=== PATIENT | male | born 1985 | race Caucasian/White ===

== ENCOUNTER 2017-12-10 13:28 | Observation (INO) ==
[2017-12-11 12:17] VITALS: BP 121/53
== END 2017-12-11 14:40 | disposition home or self-care (01) ==
LOC: EDBD → EDUNIT# → N.2E 13:28 → N.ED 13:28 → SUATTDRO 16:16 → N.2E 17:00
PROVIDERS: ADMIT Internal Medicine; ATTEND Hospitalist

== ENCOUNTER 2018-03-17 13:58 | Observation (INO) ==
[2018-03-17] MEDS ORDERED: NALOXONE 0.4 MG/ML VIAL ONE (14:49)
[2018-03-17] MEDS ORDERED: NALOXONE 0.4 MG/ML VIAL IV STA ×2 (14:51→14:56)
[2018-03-17] MEDS ORDERED: SODIUM CHLORIDE 0.9% 1,000 ML IV STA (14:52)
[2018-03-17 15:54] LABS: Basophils % 0.1 % (0.0-0.8); Hematocrit 50.1 VOL% (42.0-52.0); Immature Granulocytes % 0.3 %; Immature Granulocytes Absolute 0.05 #; Lymphocytes # 1.5 10*3/uL (1.4-4.0); Lymphocytes % 9.1 % (21.2-54.2); Mean Corpuscular HGB Conc 33.9 GM/DL (32-36); Mean Corpuscular Hemoglobin 30 PG (27-34); Mean Corpuscular Volume 88.8 FL (87-102); Mean Platelet Volume 9.2 FL (9.6-12.0); Monocytes # 0.8 10*3/uL (0.11-0.8); Monocytes % 4.6 % (1.7-12.7); Neutrophils # 14.3 10*3/uL (1.4-7.4); Neutrophils % 85.9 % (38.7-73.9); Platelet Count 511 T/CUMM (130-400); Red Blood Count 5.64 MC/CUMM (3.8-5.5); White Blood Count 16.7 T/CUMM (4-12)
[2018-03-17 16:14] LABS: Albumin 3.9 G/DL (3.4-5.0); Bilirubin,Total 1.2 MG/DL (0.2-1.0); Osmolality,Calculated 278.4 MOS/KG (273-304); Potassium 3.9 MMOL/L (3.5-5.1); Total Protein 8.3 G/DL (6.4-8.3)
[2018-03-17 16:41] LABS: Barbiturates Screen,Urine Negative (Negative); Benzodiazepines Screen,Urine Negative (Negative); Cannabinoid Screen,Urine Negative (Negative); Opiate Screen,Urine Positive (Negative); Phencyclidine Screen,Urine Negative (Negative)
[2018-03-17] MEDS ORDERED: ONDANSETRON 4 MG/2 ML VIAL IV PRN (17:16)
[2018-03-17] MEDS ORDERED: SODIUM CHLORIDE 0.9% 1,000 ML IV ONE ×2 (17:18→22:13)
[2018-03-17] MEDS: SODIUM CHLORIDE 0.9% 1,000 ML IV SCH (18:13)
[2018-03-17] MEDS ORDERED: INFLUENZA VIRUS VACCINE 0.5 ML SYRINGE IM ONE (19:59)
[2018-03-17] MEDS ORDERED: ENOXAPARIN 40 MG/0.4 ML SYRINGE SUBCUT SCH (21:00)
[2018-03-17 22:47] LABS: Apearance,Urine CLEAR (Clear); Bilirubin,Urine Negative (Negative); Blood, Urine Negative (Negative); Glucose,Urine (UA) Negative (Negative); Ketones,Urine 80 mg/dL (Negative); Mucus,Urine Many /LPF (Occasional); Nitrite,Urine Negative (Negative); Protein,Urine 30 MG/DL; RBC,Urine 3 /HPF (0-4); Squamous Epithelial Cell,Urine Occasional /HPF (0-10); Urine Color Yellow (Yellow); Urine Specific Gravity 1.029 (1.001-1.035); WBC,Urine 2 /HPF (0-6)
[2018-03-18] MEDS: SODIUM CHLORIDE 0.9% 1,000 ML IV SCH ×2 (04:13→10:10)
[2018-03-18 05:40] LABS: Basophils % 0.2 % (0.0-0.8); Eosinophils % 0.1 % (0.00-10.9); Hematocrit 42.2 VOL% (42.0-52.0); Hemoglobin 14.1 GM/DL (14.0-18.0); Immature Granulocytes % 0.6 %; Immature Granulocytes Absolute 0.07 #; Lymphocytes # 1.2 10*3/uL (1.4-4.0); Mean Corpuscular HGB Conc 33.4 GM/DL (32-36); Mean Corpuscular Hemoglobin 30 PG (27-34); Mean Corpuscular Volume 90.2 FL (87-102); Mean Platelet Volume 9.3 FL (9.6-12.0); Monocytes # 0.6 10*3/uL (0.11-0.8); Neutrophils # 10.4 10*3/uL (1.4-7.4); Neutrophils % 84.1 % (38.7-73.9); Platelet Count 376 T/CUMM (130-400); Red Blood Count 4.68 MC/CUMM (3.8-5.5); Red Cell Distribution Width 12.2 % (9.3-17.3); White Blood Count 12.4 T/CUMM (4-12)
[2018-03-18 06:03] LABS: Albumin 3.4 G/DL (3.4-5.0); Bilirubin,Total 1.6 MG/DL (0.2-1.0); Calcium 8.7 MG/DL (8.5-10.1); Total Protein 6.8 G/DL (6.4-8.3)
[2018-03-18 06:04] LABS: Thyroid Stimulating Hormone 0.696 uIU/ml (0.358-3.74)
[2018-03-18 11:40] VITALS: BP 140/78
== END 2018-03-18 15:50 ==
LOC: EDBD → EDUNIT# → N.EDINP 13:58 → N.ED 13:58 → N.EDINP 19:17 → N.ICU 19:41
PROVIDERS: ADMIT Family Medicine; ATTEND Family Medicine

== ENCOUNTER 2018-03-19 11:53 | Observation (INO) ==
[2018-03-19 13:16] LABS: Basophils % 0.2 % (0.0-0.8); Eosinophils % 0.2 % (0.00-10.9); Hematocrit 43.7 VOL% (42.0-52.0); Hemoglobin 15.2 GM/DL (14.0-18.0); Immature Granulocytes % 0.5 %; Immature Granulocytes Absolute 0.06 #; Lymphocytes # 1.9 10*3/uL (1.4-4.0); Lymphocytes % 15.4 % (21.2-54.2); Mean Corpuscular HGB Conc 34.8 GM/DL (32-36); Mean Corpuscular Hemoglobin 31 PG (27-34); Mean Corpuscular Volume 88.8 FL (87-102); Mean Platelet Volume 9.7 FL (9.6-12.0); Monocytes # 0.6 10*3/uL (0.11-0.8); Monocytes % 5.1 % (1.7-12.7); Neutrophils # 9.5 10*3/uL (1.4-7.4); Neutrophils % 78.6 % (38.7-73.9); Platelet Count 370 T/CUMM (130-400); Red Blood Count 4.92 MC/CUMM (3.8-5.5); Red Cell Distribution Width 12.3 % (9.3-17.3); White Blood Count 12.1 T/CUMM (4-12)
[2018-03-19] MEDS ORDERED: SODIUM CHLORIDE 0.9% 1,000 ML IV STA ×2 (13:25→23:00)
[2018-03-19 13:32] LABS: Alanine Aminotransferase 22 U/L (16-61); Albumin 3.6 G/DL (3.4-5.0); Alkaline Phosphatase 64 U/L (45-117); Aspartate Amino Transferase 16 U/L (0-37); Blood Urea Nitrogen 6 MG/DL (7-18); Calcium 8.9 MG/DL (8.5-10.1); Glucose 86 MG/DL (74-106); Osmolality,Calculated 279.1 MOS/KG (273-304); Potassium 3.3 MMOL/L (3.5-5.1); Sodium 142 MMOL/L (136-145); Total Protein 7.3 G/DL (6.4-8.3)
[2018-03-19 14:10] LABS: Apearance,Urine CLEAR (Clear); Bilirubin,Urine Negative (Negative); Blood, Urine Negative (Negative); Glucose,Urine (UA) Negative (Negative); Ketones,Urine 20 mg/dL (Negative); Mucus,Urine Occasional /LPF (Occasional); Nitrite,Urine Negative (Negative); Protein,Urine Negative; RBC,Urine 1 /HPF (0-4); Urine Color Yellow (Yellow); Urine Specific Gravity 1.023 (1.001-1.035); Urine Urobilinogen < 2.0 EU/DL (0.2-1.0); WBC,Urine 1 /HPF (0-6)
[2018-03-19 14:30] LABS: Barbiturates Screen,Urine Negative (Negative); Benzodiazepines Screen,Urine Negative (Negative); Cannabinoid Screen,Urine Negative (Negative); Opiate Screen,Urine Negative (Negative); Phencyclidine Screen,Urine Negative (Negative)
[2018-03-19] MEDS ORDERED: ONDANSETRON 4 MG/2 ML VIAL IV PRN (23:52)
[2018-03-19] MEDS ORDERED: NICOTINE 21 MG/24 HR PATCH TRANSDERM PRN (23:52)
[2018-03-20] MEDS: SODIUM CHLORIDE 0.9% 1,000 ML IV SCH ×2 (01:22→10:50)
[2018-03-20] MEDS ORDERED: INFLUENZA VIRUS VACCINE 0.5 ML SYRINGE IM ONE (09:00)
[2018-03-20 11:48] VITALS: BP 110/66
== END 2018-03-20 14:31 ==
LOC: EDBD → EDUNIT# → N.ED 11:53 → N.EDINP 11:53 → N.SDSINP 11:54 → N.2EOUT 23:52 → SUATTDRO 23:52 → N.2E 03-20 00:24 → EDSTATUS 03-20 00:35 → N.2EOUT 03-20 00:35 → N.2W 03-20 14:29 → N.2E 03-20 14:29 → N.5E 03-20 14:29 → UNDODISOB 03-20 14:31 → N.EDINP 03-22 03:04 → UNDODEPREF 05-27 15:48
PROVIDERS: ADMIT Internal Medicine Nephrology; ATTEND Internal Medicine Nephrology

== ENCOUNTER 2019-10-16 08:29 | Inpatient (IN) ==
[2019-10-16] MEDS ORDERED: LORazepam 2 MG/1 ML VIAL ONE ×4 (08:45→09:37)
[2019-10-16 09:11] LABS: Basophils % 0.4 % (0.0-0.8); Eosinophils # 0.1 10*3/uL (0.0-0.87); Eosinophils % 0.8 % (0.00-10.9); Hematocrit 42.1 VOL% (42.0-52.0); Hemoglobin 14.1 GM/DL (14.0-18.0); Immature Granulocytes % 0.3 %; Immature Granulocytes Absolute 0.03 #; Lymphocytes # 0.9 10*3/uL (1.4-4.0); Lymphocytes % 10.4 % (21.2-54.2); Mean Corpuscular HGB Conc 33.5 GM/DL (32-36); Mean Corpuscular Volume 92.1 FL (87-102); Monocytes % 4.1 % (1.7-12.7); Platelet Count 363 T/CUMM (130-400); Red Blood Count 4.57 MC/CUMM (3.8-5.5); Red Cell Distribution Width 12.5 % (9.3-17.3)
[2019-10-16] MEDS ORDERED: LORazepam 2 MG/1 ML VIAL IV STA ×3 (09:21→09:38)
[2019-10-16 09:30] LABS: Apearance,Urine CLEAR (Clear); Bacteria,Urine Occasional /HPF (Few); Bilirubin,Urine Negative (Negative); Blood, Urine Moderate mg/dL (Negative); Glucose,Urine (UA) Negative (Negative); Ketones,Urine 5 mg/dL (Negative); Mucus,Urine Occasional /LPF (Occasional); Nitrite,Urine Negative (Negative); Protein,Urine Negative; RBC,Urine 41 /HPF (0-4); Squamous Epithelial Cell,Urine Occasional /HPF (0-10); Urine Color Yellow (Yellow); Urine Specific Gravity 1.028 (1.001-1.035); WBC,Urine 4 /HPF (0-6)
[2019-10-16 09:33] LABS: Albumin 3.7 G/DL (3.4-5.0); Bilirubin,Total 0.7 MG/DL (0.2-1.0); Calcium 8.6 MG/DL (8.5-10.1); Osmolality,Calculated 272.8 MOS/KG (273-304); Total Protein 7.6 G/DL (6.4-8.3)
[2019-10-16] MEDS ORDERED: diphenhydrAMINE 50 MG/1 ML VIAL IV STA (09:48)
[2019-10-16] MEDS ORDERED: BENZTROPINE 2 MG/2 ML AMP IV ONE (09:48)
[2019-10-16 10:05] LABS: Carbamazepine (Tegretol) < 0.5 UG/ML (4.0-12.0); Phenytoin (Dilantin) < 0.5 UG/ML (10-20); Valproic Acid < 3.0 UG/ML (50-100)
[2019-10-16 10:07] LABS: Barbiturates Screen,Urine Negative (Negative); Benzodiazepines Screen,Urine Negative (Negative); Cannabinoid Screen,Urine Negative (Negative); Opiate Screen,Urine Negative (Negative); Phencyclidine Screen,Urine Negative (Negative)
[2019-10-16] MEDS ORDERED: HALOPERIDOL 5 MG/ML AMP IV STA (10:07)
[2019-10-16] MEDS ORDERED: HALOPERIDOL 5 MG/ML AMP ONE (10:08)
[2019-10-16 10:10] LABS: Salicylate < 2.8 MG/DL (2.8-20)
[2019-10-16 10:13] LABS: Acetaminophen < 2.0 UG/ML (10-30)
[2019-10-16] MEDS ORDERED: METHOCARBAMOL 750 MG TABLET PO PRN (10:51)
[2019-10-16] MEDS ORDERED: HydrOXYzine PAMOATE 25 MG CAPSULE PO PRN (10:51)
[2019-10-16] MEDS ORDERED: GLUCAGON 1 MG VIAL IM PRN (10:54)
[2019-10-16] MEDS ORDERED: ONDANSETRON 4 MG/2 ML VIAL IV PRN (10:54)
[2019-10-16] MEDS ORDERED: DEXTROSE 10% 250 ML BAG IV PRN (10:54)
[2019-10-16] MEDS ORDERED: ACETAMINOPHEN 325 MG TABLET PO PRN (10:54)
[2019-10-16] MEDS ORDERED: NICOTINE 21 MG/24 HR PATCH TRANSDERM PRN (10:54)
[2019-10-16] MEDS ORDERED: LORazepam 1 MG TABLET PO SCH (11:00)
[2019-10-16] MEDS ORDERED: THIAMINE INJ 100 MG, FOLIC ACID INJ 1 MG, MULTIVITAMIN INJ 10 ML in SODIUM CHLORIDE 0.9... IV ONE (14:00)
[2019-10-16] MEDS: cloNIDine 0.1 MG TABLET PO SCH ×3 (14:02→18:03)
[2019-10-16] MEDS: ENOXAPARIN 40 MG/0.4 ML SYRINGE SUBCUT SCH (21:11)
[2019-10-17] MEDS: cloNIDine 0.1 MG TABLET PO SCH ×6 (00:44→18:07)
[2019-10-17] MEDS: LORazepam 1 MG TABLET PO SCH ×4 (00:44→08:22)
[2019-10-17 06:51] LABS: Calcium 8.5 MG/DL (8.5-10.1); Osmolality,Calculated 279.1 MOS/KG (273-304)
[2019-10-17 06:53] LABS: Basophils % 0.9 % (0.0-0.8); Eosinophils # 0.4 10*3/uL (0.0-0.87); Eosinophils % 8.3 % (0.00-10.9); Hematocrit 40.3 VOL% (42.0-52.0); Hemoglobin 13.2 GM/DL (14.0-18.0); Immature Granulocytes % 0.2 %; Immature Granulocytes Absolute 0.01 #; Lymphocytes # 1.3 10*3/uL (1.4-4.0); Mean Corpuscular HGB Conc 32.8 GM/DL (32-36); Mean Corpuscular Volume 94.6 FL (87-102); Monocytes % 6.5 % (1.7-12.7); Neutrophils % 54.1 % (38.7-73.9); Platelet Count 278 T/CUMM (130-400); Red Blood Count 4.26 MC/CUMM (3.8-5.5); White Blood Count 4.5 T/CUMM (4-12)
[2019-10-17] MEDS: DEXTROSE 5% NACL 0.45% 1,000 ML IV SCH ×3 (07:13→23:40)
[2019-10-17] MEDS: MIRTAZAPINE 15 MG TABLET PO SCH (08:23)
[2019-10-17 08:38] LABS: Apearance,Urine CLEAR (Clear); Bacteria,Urine Occasional /HPF (Few); Bilirubin,Urine Negative (Negative); Blood, Urine Moderate mg/dL (Negative); Glucose,Urine (UA) Negative (Negative); Ketones,Urine Negative (Negative); Mucus,Urine Occasional /LPF (Occasional); Nitrite,Urine Negative (Negative); Protein,Urine Negative; RBC,Urine 9 /HPF (0-4); Squamous Epithelial Cell,Urine Occasional /HPF (0-10); Urine Color Yellow (Yellow); Urine Specific Gravity 1.012 (1.001-1.035); Urine Urobilinogen < 2.0 EU/DL (0.2-1.0); WBC,Urine 15 /HPF (0-6)
[2019-10-17] MEDS ORDERED: LORazepam 2 MG/1 ML VIAL IV PRN (08:42)
[2019-10-17] MEDS: ENOXAPARIN 40 MG/0.4 ML SYRINGE SUBCUT SCH (20:55)
[2019-10-18 06:31] LABS: Basophils % 0.5 % (0.0-0.8); Eosinophils # 0.6 10*3/uL (0.0-0.87); Eosinophils % 9.1 % (0.00-10.9); Hematocrit 40.6 VOL% (42.0-52.0); Hemoglobin 13.7 GM/DL (14.0-18.0); Immature Granulocytes % 0.2 %; Immature Granulocytes Absolute 0.01 #; Lymphocytes # 1.2 10*3/uL (1.4-4.0); Lymphocytes % 19.6 % (21.2-54.2); Mean Corpuscular HGB Conc 33.7 GM/DL (32-36); Mean Corpuscular Volume 92.7 FL (87-102); Mean Platelet Volume 9.5 FL (9.6-12.0); Monocytes % 5.3 % (1.7-12.7); Neutrophils % 65.3 % (38.7-73.9); Platelet Count 268 T/CUMM (130-400); Red Blood Count 4.38 MC/CUMM (3.8-5.5); Red Cell Distribution Width 12.3 % (9.3-17.3)
[2019-10-18 06:48] LABS: Calcium 8.1 MG/DL (8.5-10.1); Osmolality,Calculated 278.3 MOS/KG (273-304)
[2019-10-18] MEDS: cloNIDine 0.1 MG TABLET PO SCH ×5 (07:09→14:04)
[2019-10-18] MEDS: MIRTAZAPINE 15 MG TABLET PO SCH (08:11)
[2019-10-18] MEDS: DEXTROSE 5% NACL 0.45% 1,000 ML IV SCH ×2 (08:11→14:32)
[2019-10-18 16:04] VITALS: BP 103/59
== END 2019-10-18 16:14 | disposition home or self-care (01) | DRG 897 ==
LOC: EDBD → EDUNIT# → N.ED 08:29 → N.EDINP 10:50 → N.TELES 11:53
PROVIDERS: ADMIT Internal Medicine; ATTEND Internal Medicine

== ENCOUNTER 2020-04-20 17:23 | Observation (INO) ==
[2020-04-20] MEDS ORDERED: MORPHINE 4 MG/1 ML VIAL IV STA (18:40)
[2020-04-20] MEDS ORDERED: ONDANSETRON 4 MG/2 ML VIAL IV ONE (18:40)
[2020-04-20 18:56] LABS: Basophils # 0.1 10*3/uL (0.0-0.2); Basophils % 0.8 % (0.0-0.8); Eosinophils # 1.1 10*3/uL (0.0-0.87); Eosinophils % 13.4 % (0.00-10.9); Hemoglobin 14.5 GM/DL (14.0-18.0); Immature Granulocytes % 0.2 %; Immature Granulocytes Absolute 0.02 #; Lymphocytes # 1.7 10*3/uL (1.4-4.0); Lymphocytes % 20.1 % (21.2-54.2); Mean Corpuscular HGB Conc 34.5 GM/DL (32-36); Mean Corpuscular Volume 88.6 FL (87-102); Mean Platelet Volume 9.2 FL (9.6-12.0); Monocytes % 6.6 % (1.7-12.7); Neutrophils % 58.9 % (38.7-73.9); Platelet Count 302 T/CUMM (130-400); Red Blood Count 4.74 MC/CUMM (3.8-5.5); Red Cell Distribution Width 12.9 % (9.3-17.3); White Blood Count 8.4 T/CUMM (4-12)
[2020-04-20 19:17] LABS: Albumin 3.5 G/DL (3.4-5.0); Bilirubin,Total 0.5 MG/DL (0.2-1.0); Calcium 8.7 MG/DL (8.5-10.1); Osmolality,Calculated 272.1 MOS/KG (273-304); Total Protein 7.9 G/DL (6.4-8.3)
[2020-04-20 19:22] LABS: Eosinophils 15 % (0-10); Lymphocytes 28 % (20-55); Platelet Estimate Normal; Segmented Neutrophils 54 % (50-85); Total Cells Counted 100
[2020-04-20] MEDS ORDERED: POTASSIUM CHLORIDE 20 MEQ TABLET PO STA (19:31)
[2020-04-20] MEDS ORDERED: HYDROmorphone 2 MG/1 ML VIAL IV STA (20:05)
[2020-04-20] MEDS ORDERED: ONDANSETRON 4 MG/2 ML VIAL IV PRN (20:17)
[2020-04-20] MEDS ORDERED: HYDROmorphone 2 MG/1 ML VIAL IV PRN (20:17)
[2020-04-20] MEDS ORDERED: SODIUM CHLORIDE 0.9% 1,000 ML IV SCH (20:30)
[2020-04-20] MEDS: KETOROLAC 30 MG/1 ML VIAL IV SCH (22:39)
[2020-04-21] MEDS: KETOROLAC 30 MG/1 ML VIAL IV SCH (03:55)
[2020-04-21 04:22] VITALS: BP 91/70
[2020-04-21 05:55] LABS: Basophils # 0.1 10*3/uL (0.0-0.2); Basophils % 0.8 % (0.0-0.8); Hematocrit 38.7 VOL% (42.0-52.0); Hemoglobin 12.9 GM/DL (14.0-18.0); Immature Granulocytes % 0.2 %; Immature Granulocytes Absolute 0.01 #; Lymphocytes # 2.2 10*3/uL (1.4-4.0); Mean Corpuscular HGB Conc 33.3 GM/DL (32-36); Mean Corpuscular Volume 91.7 FL (87-102); Mean Platelet Volume 9.9 FL (9.6-12.0); Platelet Count 257 T/CUMM (130-400); Red Blood Count 4.22 MC/CUMM (3.8-5.5); Red Cell Distribution Width 13.2 % (9.3-17.3); White Blood Count 6.5 T/CUMM (4-12)
[2020-04-21 06:32] LABS: Albumin 2.8 G/DL (3.4-5.0); Bilirubin,Total 0.7 MG/DL (0.2-1.0); Calcium 8.2 MG/DL (8.5-10.1); Eosinophils 11 % (0-10); Lymphocytes 39 % (20-55); Osmolality,Calculated 275.7 MOS/KG (273-304); Platelet Estimate Adequate; Segmented Neutrophils 41 % (50-85); Total Cells Counted 100; Total Protein 6.5 G/DL (6.4-8.3)
== END 2020-04-21 08:41 | disposition home or self-care (01) ==
LOC: N.EDINP 17:23 → N.ED 17:23 → N.EDINP 20:59 → N.3E 21:12
PROVIDERS: ADMIT Surgery; ATTEND Surgery